=== PATIENT | female | born 1960 | race African-American/Black ===

== ENCOUNTER → 2017-10-01 | Outpatient (CLI) | payer OTHER ==
[~2017-10-01] VITALS: Ht 154.9 cm; Wt 68.4 kg
[~2017-10-01] MED LIST: AMITRIPTYLINE H25 M2 PO; LIDOCAINE1 EACH TP; MEDROLDOSEPACK PO; NAPROSYN500 MG PO; NORVASC5 M1 PO; TIZANIDINE HCL4 MG PO; VALIUM10 MG PO
--- NOTE | ~2017-10-01 | HPC ---
[facility] [address] [address] PAIN MANAGEMENT CONSULTATION Name: KIRKLANDGREY Room #: REG Leana Avalos.#: [id number] Admission: 10/01/17 Attend Phys: Meng Porter MD Discharge: Date of : 60 Report #: [id number] THIS REPORT FOR: //name// CC: Terry Moore DATE OF SERVICE: 10/01/2017 CHIEF COMPLAINT: "Pain in my back, legs, which has been really bad since 2007. HISTORY OF PRESENT ILLNESS: The patient is a 57-year-old black female. She is has been referred to the pain clinic for evaluation. She states that she has had a somewhat tumultuous time since 2007. She has had 5 nervous breakdowns. Her son approximately in 2007. Three years ago, her . She feels that she is experiencing a significant amount of stress. She is complaining of pain and discomfort down in her back, in the neck area as well as some pain and discomfort in her left knee and right shoulder area. She states that she has been to a chiropractor. She has undergone approximately 16 visits without long-term benefit. She feels like she is experiencing muscle spasms. She has not had physical therapy. She had an MRI of her back, the results of which she was told did not show a lot. Denies any significant bowel or bladder dysfunction at this juncture. States that she is retired. She has received a Medrol Dosepak. Describes her pain and discomfort as continuous, steady, constant, burning, shooting, cramping, aching, pulling, gnawing, throbbing, stabbing and tender. She rates it as a 10 on a scale of 10 today, is a 10 on average daily, and rates her worst pain as a 10. The pain clinic impact survey, when describing pain during the past 24 hours, is rated as 10 for general activity, 10/10 for mood, walking ability 8/10, working outside the house 10/10, relationship with other people 10/10, sleep 10/10, and enjoyment in life interference 10/. ALLERGIES: No known drug allergies. MEDICATIONS: Valium 10 mg 1 tablet b.i.d. PAST MEDICAL HISTORY: Depression. The patient states she has had 5 nervous breakdowns, and hypertension. PAST SURGICAL HISTORY: None. SOCIAL HISTORY: States that she is retired. She is not working at this juncture. She is receiving disability. REVIEW OF SYSTEMS: Twelve-point reveals generally good health, fatigue, weakness, headaches, wears glasses, shortness of breath when walking, loss of [address] [address] PAIN MANAGEMENT CONSULTATION Name: GREY KIRKLAND CELIA Room #: REG CLLeana M.R.#: [id number] Admission: 10/01/17 Attend Phys: Meng Porter MD Discharge: Date of : 60 Report #: [id number] appetite, change in bowel movements, nausea and vomiting, frequent urination, lightheadedness, dizziness, numbness and tingling sensation, and tremors. PAIN CLINIC ASSESSMENT: 1. There is a history of osteoarthritis/rheumatoid arthritis. The patient is not being treated for osteoarthritis or rheumatoid arthritis. 2. Pain intensity 03/09. 3. Fall risk: The patient states that she has fallen in the last 2 months. She states that she is walking on the flat surface. She does not know why she fell. 4. Blood thinner. The patient is not on a blood thinner 5. History of hypertension. The patient is being treated for hypertension. 6. Opioid medications greater than 6 weeks: The patient is not on an opioid regimen. 7. Risk assessment 06/02 for opioid use. 8. Functional assessment tool 68/70 shows marked problems with activities of daily living secondary to pain condition. 9. Tobacco: The patient denies ever smoking cigarettes. 10. Alcohol: The patient denies use of alcoholic beverages. LABORATORY DATA: 1. MRI of the lumbar spine dated 09/28/2017, L1-L2. There is normal configuration. No significant facet arthropathy, no neural foraminal or spinal stenosis 2. L3-L4, there is minimal disk bulge. There is minimal facet arthropathy. There is no significant neural foraminal or spinal stenosis. 3. L4-L5, there is minimal disk bulge. There is minimal facet arthropathy. There is no significant neural foraminal or spinal stenosis. 4. L5-S1. The disk is normal in configuration. There is mild to moderate facet arthropathy. There is no significant neural foramen or spinal stenosis. PHYSICAL EXAMINATION: VITAL SIGNS: Height 5 feet 1 inch, weight 150 pounds, BMI is 28. Blood pressure 113/74, pulse 95, respiratory rate 16, room air saturation is 100%. GENERAL: The patient is a well-developed black female. She is alert and oriented x 3. She does appear mentally distress. She is tearful during the interview. HEENT: Normocephalic, atraumatic. Extraocular eye muscles intact. Sclerae nonicteric. Hearing is within normal limits. Mucous membranes are moist. NECK: Flexion, extension, left and right lateral rotation, the patient complains of some pain in the muscular area near C7-T1. Palpation in this area causes the patient to complain of some muscular discomfort. NECK: Without JVD or adenopathy. HEART: Regular rate, S1, S2. CHEST: Clear to auscultation without rales or rhonchi. MUSCULOSKELETAL: Appears within normal limits without significant scoliosis, [facility] [address] [place] [address] PAIN MANAGEMENT CONSULTATION Name: GREY KIRKLAND CELIA Room #: REG [facility].#: [id number] Admission: 10/01/17 Attend Phys: Meng Porter MD Discharge: Date of : 60 Report #: [id number] kyphosis or lordosis. The patient complains of pain and discomfort in the low back area in the low lumbar L5 and L4 areas. Also, complains of some pain in the midline of her back from the T1 area down to the dorsum of her sacrum. Complains of some right shoulder rhomboid area of discomfort. Also, complains of some numbness and tingling in her right foot. She has some sensation of pinprick in the low back area in the left and right posterior superior iliac spine areas. MUSCULOSKELETAL: The general muscle strength in the upper extremities appears to be 5/5 without sensory changes, +1. Biceps tendon reflex ____ low back area. The patient complains of some pain and discomfort radiating down into her legs. Muscles symmetry appears to be normal. Muscle strength is generally 5/5 with the patient cooperation. IMPRESSION: 1. Complaint of chronic pain involving the low back area, legs, shoulder, neck, right rhomboid area, and left posterior knee 2. History of "5 nervous breakdowns" since the of her son in 2007 and additional problems since the of her 3 years ago. 3. Hypertension. RECOMMENDATIONS: We discussed treatment options with the patient. She states that she has been seen by a chiropractor. She has not had physical therapy. She has an MRI, which shows no significant changes. The patient continues to want to know the reason for her pain. We explained that she could have pain that is associated with irritation of the nerves without actual physical findings. Annular tears in the disk could cause a chemical irritation to the sciatic areas. At this juncture, we will have the patient try amitriptyline. We explained that this medication can be helpful with nerve types of pain. Also, hopefully this would help her get a bit more rest at night. She states that she is not sleeping quite poorly. We have given her a Medrol Dosepak to take in the interim. Should her pain continue to be problematic, she can return to the pain clinic at which time given that she is having pain symptomatology. As she describes consistent with lumbar radiculopathy, we could consider lumbar epidural steroid injection. We would like to thank you for letting us participate in her care. We hope she continues to improve. <ELECTRONICALLY SIGNED> By: Meng Porter MD 10/08/17 [id number] Meng Porter MD /DARRIUS
[2017-10-01 12:56] VITALS: BP 113/74
== END ==
LOC: PAIN 11:36
DX: G89.29 Other chronic pain (principal); M54.5 Low back pain; M06.9 Rheumatoid arthritis, unspecified; I10 Essential (primary) hypertension; F11.90 Opioid use, unspecified, uncomplicated